=== PATIENT | female | born 1955 | race Caucasian/White ===

== ENCOUNTER → 2017-02-09 | Outpatient (CLI) | payer OTHER | LOC: FIMAGING 06:58 | PROVIDERS: ATTEND Family Medicine | DX: K80.20 Calculus of gallbladder without cholecystitis without obstruction (principal); D18.03 Hemangioma of intra-abdominal structures ==

== ENCOUNTER → 2017-05-09 | Outpatient (CLI) | payer OTHER | LOC: FIMAGING 08:31 | DX: Z12.31 Encounter for screening mammogram for malignant neoplasm of breast (principal) | CPT/HCPCS: G0202 ==

== ENCOUNTER → 2017-08-18 | Outpatient (CLI) | payer OTHER | LOC: EDSTATUS 12:15 → FIMAGING 12:15 | PROVIDERS: ATTEND Family Medicine | DX: R07.89 Other chest pain (principal); M79.9 Soft tissue disorder, unspecified; M75.40 Impingement syndrome of unspecified shoulder ==

== ENCOUNTER → 2017-08-29 | Outpatient (CLI) | payer OTHER | LOC: FIMAGING 13:58 | PROVIDERS: ATTEND Family Medicine | DX: M79.9 Soft tissue disorder, unspecified (principal); R07.89 Other chest pain; M75.40 Impingement syndrome of unspecified shoulder ==

== ENCOUNTER → 2018-04-04 | Outpatient (CLI) | payer OTHER | LOC: FIMAGING 14:44 → EDSTATUS 14:45 | PROVIDERS: ATTEND Family Medicine | DX: D18.03 Hemangioma of intra-abdominal structures (principal); J98.4 Other disorders of lung; M41.9 Scoliosis, unspecified; R53.83 Other fatigue; R35.1 Nocturia ==

== ENCOUNTER → 2018-05-19 | Outpatient (CLI) | payer OTHER | LOC: FIMAGING 14:52 | PROVIDERS: ATTEND Internal Medicine Pulmonary Disease | DX: J43.9 Emphysema, unspecified (principal); R91.1 Solitary pulmonary nodule ==

== ENCOUNTER → 2018-12-11 | Outpatient (CLI) | payer OTHER ==
[~2018-12-11] MED LIST: IOPAMIDOL (ISOVUE 370) 100 ML BTL IV ONE
== END ==
LOC: FIMAGING 13:38
PROVIDERS: ATTEND Internal Medicine Pulmonary Disease
DX: R91.8 Other nonspecific abnormal finding of lung field (principal)
CPT/HCPCS: Q9967

== ENCOUNTER 2019-03-22 20:23 | Observation (INO) | payer OTHER ==
--- NOTE | 2019-03-22 20:41 | EDPHY ---
H & P Time Seen by Provider: 03/22/19 20:41 HPI/ROS: CHIEF COMPLAINT: Abdominal pain HISTORY OF PRESENT ILLNESS: History of known gallstone since 2014 per the patient, ultrasound on 02/09/2017 shows a 15 x 18 x 11 mm gallstone. Started having pain 2 days ago and then much worse today. Right upper quadrant abdomen radiating to the back, worse today after eating chicken soup and a bagel today. Associated with nausea but no vomiting. Severe on arrival. Not associated with fevers or chills or injury or recent trauma. REVIEW OF SYSTEMS: Eye: no change in vision ENT: no sore throat Cardiac: no chest pain or syncope Pulmonary: no cough or SOB Abdomen: HPI Musculoskeletal: no back pain Skin: no rash Neuro: no headache Constitutional: no fever : no urinary symptoms A comprehensive 10 point review of systems is otherwise negative aside from elements mentioned in the history of present illness. PAST MEDICAL HISTORY: Gallstone, varicose vein surgery Social history: No alcohol or tobacco General Appearance: Alert and conversant, cooperative. Eyes: No scleral icterus. ENT, Mouth: Dry mucous membranes. Respiratory: Normal respiratory effort, breath sounds equal, lungs are clear to auscultation. Cardiovascular: Regular rate and rhythm. Gastrointestinal: Right upper quadrant abdominal tenderness but no guarding or rebound. Neurological: Alert, face symmetric, normal motor and sensory in extremities. Skin: Warm and dry, no rashes. Musculoskeletal: No peripheral edema. Psychiatric: Not agitated. Emergency Department course/MDM: Fentanyl 100 and Zofran 4, IV normal saline 1 L, right upper quadrant ultrasound , CBC chemistry lipase and LFT. 2034: mobile gallstone without cholecystitis, liver mass known unchanged, Glenna. 2199: Lipase 700, with typical symptoms will admit for IV fluids for mild pancreatitis. She feels better now. Smoking Status: Never smoked Constitutional: Initial Vital Signs Temperature (C) 37.0 C 03/22/19 20:27 Heart Rate 85 03/22/19 20:27 Respiratory Rate 16 03/22/19 20:27 Blood Pressure 145/105 H 03/22/19 20:27 O2 Sat (%) 97 03/22/19 20:27 O2 Delivery Mode Room Air Allergies/Adverse Reactions: No Known Allergies Allergy (Unverified 03/22/19 20:29) Home Medications: Medication Instructions Recorded NK [No Known Home Meds] 03/22/19 Medical Decision Making - Diagnostics Imaging Results: Imaging Impressions Abdomen Ultrasound 03/22/19 20:53 Impression: 1. Cholelithiasis (solitary and mobile) without secondary evidence of cholecystitis 2. Stable hepatic mass presumably a hemangioma Results discussed with Dr. Neeraj Smith at 9:35 PM Imaging: Discussed imaging studies w/ yard caller Radiologist Consult/Admit Bed Type: [place] [id number] - Data Points Laboratory Results: Laboratory Results 03/22/19 21:05 03/22/19 21:05 03/22/19 03/22/19 21:05 21:05 WBC 10.85 10^3/uL H 10^3/uL (3.80-9.50) RBC 4.78 10^6/uL 10^6/uL (4.18-5.33) Hgb 14.3 g/dL g/dL (12.6-16.3) Hct 41.9 % % (38.0-47.0) MCV 87.7 fL fL (81.5-99.8) MCH 29.9 pg pg (27.9-34.1) MCHC 34.1 g/dL g/dL (32.4-36.7) RDW 13.5 % % (11.5-15.2) Plt Count 230 10^3/uL 10^3/uL (150-400) MPV 11.1 fL fL (8.7-11.7) Neut % (Auto) 78.5 % H % (39.3-74.2) Lymph % (Auto) 13.4 % L % (15.0-45.0) [place] % (Auto) 7.0 % % (4.5-13.0) Eos % (Auto) 0.5 % L % (0.6-7.6) Baso % (Auto) 0.2 % L % (0.3-1.7) Nucleat RBC Rel Count 0.0 % % (0.0-0.2) Absolute Neuts (auto) 8.53 10^3/uL H 10^3/uL (1.70-6.50) Absolute Lymphs (auto) 1.45 10^3/uL 10^3/uL (1.00-3.00) Absolute Monos (auto) 0.76 10^3/uL 10^3/uL (0.30-0.80) Absolute Eos (auto) 0.05 10^3/uL 10^3/uL (0.03-0.40) Absolute Basos (auto) 0.02 10^3/uL 10^3/uL (0.02-0.10) Absolute Nucleated RBC 0.00 10^3/uL 10^3/uL (0-0.01) Immature Gran % 0.4 % % (0.0-1.1) Immature Gran # 0.04 10^3/uL 10^3/uL (0.00-0.10) Sodium 139 mEq/L mEq/L (135-145) Potassium 3.5 mEq/L mEq/L (3.5-5.2) Chloride 104 mEq/L mEq/L (97-110) Carbon Dioxide 26 mEq/l mEq/l (22-31) Anion Gap 9 mEq/L mEq/L (6-14) BUN 13 mg/dL mg/dL (7-23) Creatinine 0.6 mg/dL mg/dL (0.6-1.0) Estimated GFR > 60 Glucose 100 mg/dL mg/dL (70-100) Calcium 8.8 mg/dL mg/dL (8.5-10.4) Total Bilirubin 0.4 mg/dL mg/dL (0.1-1.4) Conjugated Bilirubin 0.3 mg/dL mg/dL (0.0-0.5) Unconjugated Bilirubin 0.1 mg/dL mg/dL (0.0-1.1) AST 21 IU/L IU/L (14-46) ALT 37 IU/L IU/L (9-52) Alkaline Phosphatase 64 IU/L IU/L (38-126) Total Protein 6.5 g/dL g/dL (6.3-8.2) Albumin 4.1 g/dL g/dL (3.5-5.0) Lipase 703 IU/L H IU/L (23-300) Medications Given: Discontinued Medications Fentanyl (Sublimaze) 100 mcg IVP EDNOW ONE Stop: 03/22/19 20:54 Last Admin: 03/22/19 21:06 Dose: 100 mcg Sodium Chloride (Ns) 1,000 mls @ 0 mls/hr IV EDNOW ONE; Wide Open PRN Reason: Protocol Stop: 03/22/19 20:54 Last Admin: 03/22/19 21:05 Dose: 1,000 mls Ondansetron HCl (Zofran) 4 mg IVP EDNOW ONE Stop: 03/22/19 20:54 Last Admin: 03/22/19 21:05 Dose: 4 mg Departure - Departure Disposition: [facility] In[facility] Acute Clinical Impression: Biliary colic Pancreatitis, acute Qualifiers: Pancreatitis type: unspecified pancreatitis type Acute pancreatitis complication: unspecified Qualified Code(s): K85.90 - Acute pancreatitis without necrosis or infection, unspecified Condition: Good Referrals: Scarlett Boo MD [Primary Care Provider] - As per Instructions
[2019-03-22] MEDS ORDERED: NS 1,000 ML IV ONE (20:53)
[2019-03-22] MEDS ORDERED: fentaNYL 100 MCG/2 ML INJ IVP ONE (20:53)
[2019-03-22] MEDS ORDERED: ONDANSETRON 4 MG/2 ML VIAL IVP ONE (20:53)
[2019-03-22 21:22] LABS: PLATELET COUNT 230 10^3/uL (150-400)
[2019-03-22] MEDS ORDERED: ONDANSETRON DISINTEGRATING 4 MG TAB PO PRN (22:18)
[2019-03-22] MEDS ORDERED: ACETAMINOPHEN 325 MG TAB PO PRN (22:18)
[2019-03-22] MEDS ORDERED: PROMETHAZINE HCL 25 MG/ML INJ IVP PRN (22:18)
[2019-03-22] MEDS ORDERED: ONDANSETRON 4 MG/2 ML VIAL IVP PRN (22:18)
[2019-03-22] MEDS: NS 1,000 ML IV SCH (23:24)
[2019-03-22] MEDS: oxyCODONE IR 5 MG TAB PO PRN (23:40)
--- NOTE | 2019-03-23 00:19 | PDGENHP ---
History and Physical - Chief Complaint Abdominal pain - History of Present Illness 63 yo F w/ hx of gallstones presents with abdominal pain. The patient tells me she developed her usual RUQ, post-prandial pain 2 days ago. The pain, however, seemed to persist. She also then developed discomfort in the epi-gastric region as well as nausea and vomiting. She came in to the ED for evaluation and was noted to have a mildly elevated lipase, suggestive of pancreatitis. A RUQ u/s demonstrates only cholelithiasis. During my evaluation she is only in minimal pain. She is being admitted for supportive care for likely gallstone pancreatitis. She tells me a cholecystectomy has been recommended in the past but she chose to postpone this. Case Discussed with Dr. Nassar; records reviewed and summarized above. History Information - Allergies/Home Medication List Allergies/Adverse Reactions: No Known Allergies Allergy (Unverified 03/22/19 20:29) Home Medications: NK [No Known Home Meds] 03/22/19 [Last Taken Unknown] I have personally reviewed and updated: family history, medical history - Past Medical History Additional medical history: Gallstones - Surgical History Additional surgical history: LE venous ablation - Family History Positive for: diabetes type II Additional family history: Gallstones - Social History Smoking Status: Never smoked Review of Systems Review of Systems: ROS: 10pt was reviewed & negative except for what was stated in HPI & below Physical Exam Physical Exam: Temp Pulse Resp BP Pulse Ox 37.0 C 80 16 112/72 90 L 03/22/19 23:19 03/22/19 23:19 03/22/19 23:19 03/22/19 23:19 03/22/19 23:19 Constitutional: appears nourished, uncomfortable Eyes: PERRL, EOMI Ears, Nose, Mouth, Throat: moist mucous membranes, no oral mucosal ulcers Cardiovascular: regular rate and rhythym, no murmur, rub, or gallop Respiratory: no respiratory distress, clear to auscultation Gastrointestinal: normoactive bowel sounds, tenderness (RUQ/epi-gastric), No guarding, No rebound, No distension Skin: warm, normal color Musculoskeletal: full muscle strength, no muscle tenderness Neurologic: AAOx3, CN II-XII Intact Psychiatric: interacting appropriately, not anxious Lab Data & Imaging Review 03/22/19 21:05 03/22/19 21:05 WBC 10.85 10^3/uL (3.80-9.50) H 03/22/19 21:05 RBC 4.78 10^6/uL (4.18-5.33) 03/22/19 21:05 Hgb 14.3 g/dL (12.6-16.3) 03/22/19 21:05 Hct 41.9 % (38.0-47.0) 03/22/19 21:05 MCV 87.7 fL (81.5-99.8) 03/22/19 21:05 MCH 29.9 pg (27.9-34.1) 03/22/19 21:05 MCHC 34.1 g/dL (32.4-36.7) 03/22/19 21:05 RDW 13.5 % (11.5-15.2) 03/22/19 21:05 Plt Count 230 10^3/uL (150-400) 03/22/19 21:05 MPV 11.1 fL (8.7-11.7) 03/22/19 21:05 Neut % (Auto) 78.5 % (39.3-74.2) H 03/22/19 21:05 Lymph % (Auto) 13.4 % (15.0-45.0) L 03/22/19 21:05 [place] % (Auto) 7.0 % (4.5-13.0) 03/22/19 21:05 Eos % (Auto) 0.5 % (0.6-7.6) L 03/22/19 21:05 Baso % (Auto) 0.2 % (0.3-1.7) L 03/22/19 21:05 Nucleat RBC Rel Count 0.0 % (0.0-0.2) 03/22/19 21:05 Absolute Neuts (auto) 8.53 10^3/uL (1.70-6.50) H 03/22/19 21:05 Absolute Lymphs (auto) 1.45 10^3/uL (1.00-3.00) 03/22/19 21:05 Absolute Monos (auto) 0.76 10^3/uL (0.30-0.80) 03/22/19 21:05 Absolute Eos (auto) 0.05 10^3/uL (0.03-0.40) 03/22/19 21:05 Absolute Basos (auto) 0.02 10^3/uL (0.02-0.10) 03/22/19 21:05 Absolute Nucleated RBC 0.00 10^3/uL (0-0.01) 03/22/19 21:05 Immature Gran % 0.4 % (0.0-1.1) 03/22/19 21:05 Immature Gran # 0.04 10^3/uL (0.00-0.10) 03/22/19 21:05 Sodium 139 mEq/L (135-145) 03/22/19 21:05 Potassium 3.5 mEq/L (3.5-5.2) 03/22/19 21:05 Chloride 104 mEq/L (97-110) 03/22/19 21:05 Carbon Dioxide 26 mEq/l (22-31) 03/22/19 21:05 Anion Gap 9 mEq/L (6-14) 03/22/19 21:05 BUN 13 mg/dL (7-23) 03/22/19 21:05 Creatinine 0.6 mg/dL (0.6-1.0) 03/22/19 21:05 Estimated GFR > 60 03/22/19 21:05 Glucose 100 mg/dL (70-100) 03/22/19 21:05 Calcium 8.8 mg/dL (8.5-10.4) 03/22/19 21:05 Total Bilirubin 0.4 mg/dL (0.1-1.4) 03/22/19 21:05 Conjugated Bilirubin 0.3 mg/dL (0.0-0.5) 03/22/19 21:05 Unconjugated Bilirubin 0.1 mg/dL (0.0-1.1) 03/22/19 21:05 AST 21 IU/L (14-46) 03/22/19 21:05 ALT 37 IU/L (9-52) 03/22/19 21:05 Alkaline Phosphatase 64 IU/L (38-126) 03/22/19 21:05 Total Protein 6.5 g/dL (6.3-8.2) 03/22/19 21:05 Albumin 4.1 g/dL (3.5-5.0) 03/22/19 21:05 Lipase 703 IU/L (23-300) H 03/22/19 21:05 Urine Color PALE YELLOW 03/22/19 22:22 Urine Appearance CLEAR 03/22/19 22:22 Urine pH 6.0 (5.0-7.5) 03/22/19 22:22 Ur Specific [place] 1.009 (1.002-1.030) 03/22/19 22:22 Urine Protein NEGATIVE (NEGATIVE) 03/22/19 22:22 Urine Ketones NEGATIVE (NEGATIVE) 03/22/19 22:22 Urine Blood 1+ (NEGATIVE) H 03/22/19 22:22 Urine Nitrate NEGATIVE (NEGATIVE) 03/22/19 22:22 Urine Bilirubin NEGATIVE (NEGATIVE) 03/22/19 22:22 Urine Urobilinogen NEGATIVE EU (0.2-1.0) 03/22/19 22:22 Ur Leukocyte Esterase TRACE (NEGATIVE) H 03/22/19 22:22 Urine RBC 1-3 /hpf (0-3) 03/22/19 22:22 Urine WBC 1-3 /hpf (0-3) 03/22/19 22:22 Ur Epithelial Cells TRACE /lpf (NONE-1+) 03/22/19 22:22 Urine Mucus TRACE /lpf (NONE-1+) 03/22/19 22:22 Urine Glucose NEGATIVE (NEGATIVE) 03/22/19 22:22 Imaging Review: Imaging Impressions Abdomen Ultrasound 03/22/19 20:53 Impression: 1. Cholelithiasis (solitary and mobile) without secondary evidence of cholecystitis 2. Stable hepatic mass presumably a hemangioma Results discussed with Dr. Neeraj Smith at 9:35 PM Assessment & Plan Assessment: 63 yo F w/ hx of cholelithiasis presents with presumed gallstone pancreatitis. Plan: 1. Pancreatitis - Likely due to known cholelithiasis; lipase only 703 on admission. - Admit for observation - NPO, ADAT - mIVF, pain control, anti-emetics PRN 2. Cholelithiasis - Chronic issue for this patient, she has been advised on the need for cholecystectomy in the past but has decided to post-pone. - Consider inpatient surgery consult if patient amenable Diet - NPO, mIVF, ADAT Code - Full Ppx - SCDs Dispo - Admit under observation status
[2019-03-23] MEDS: oxyCODONE IR 5 MG TAB PO PRN ×4 (03:40→20:07)
[2019-03-23 04:36] LABS: PLATELET COUNT 208 10^3/uL (150-400)
[2019-03-23] MEDS: NS 1,000 ML IV SCH (05:52)
--- NOTE | 2019-03-23 13:00 | HOSPPROG ---
Hospitalist Progress Note Assessment/Plan: 63 yo f w gallstone pancreatitis pancreatitis: mild continue NPO cholelithiasis: this is her second episode related to gallstones surgical eval for likely cholecystectomy this admit pain: continue morphine and prn oxycodone proph: LMwh postop if staying dispo: change to inpt for surgery Subjective: case d/w dr fowler. pain improved Objective: Vital Signs Temp Pulse Resp BP Pulse Ox 36.3 C 71 16 118/76 91 L 03/23/19 11:41 03/23/19 11:41 03/23/19 11:41 03/23/19 11:41 03/23/19 11:41 Laboratory Results 03/23/19 04:16 03/23/19 04:16 03/22/19 03/23/19 03/24/19 05:59 05:59 05:59 Intake Total 2000 Output Total 500 300 Balance 1500 -300 - Physical Exam Constitutional: no apparent distress, appears nourished Eyes: PERRL, anicteric sclera Ears, Nose, Mouth, Throat: moist mucous membranes, hearing normal Cardiovascular: regular rate and rhythym, no murmur, rub, or gallop Respiratory: no respiratory distress, no rales or rhonchi Gastrointestinal: normoactive bowel sounds, soft, non-tender abdomen, No ortiz' s sign, No guarding, No rebound Genitourinary: no bladder fullness, No santana in urethra Skin: warm, normal color Musculoskeletal: full muscle strength Neurologic: AAOx3 ICD10 Worksheet Patient Problems: Problems Problem Status Onset Biliary colic Acute Pancreatitis, acute Acute
[2019-03-23] MEDS ORDERED: BUPIVACAINE 0.5% 30 ML SDV ONE (13:21)
[2019-03-23] MEDS ORDERED: ceFAZolin 2 GM/DEXTROSE 100 ML IV ONE (13:34)
[2019-03-23] MEDS ORDERED: LR 1,000 ML IV ONE (13:44)
--- NOTE | 2019-03-23 14:26 | PDANEPAE ---
ANE History of Present Illness cholelithiasis, here for lap dakota ANE Past Medical History - Cardiovascular History Hx Hypertension: No Hx Arrhythmias: No Hx Chest Pain: No Hx Coronary Artery / Peripheral Vascular Disease: No Hx CHF / Valvular Disease: No Hx Palpitations: No - Pulmonary History Hx COPD: No Hx Asthma/Reactive Airway Disease: No Hx Recent Upper Respiratory Infection: No Hx Oxygen in Use at Home: No Hx Sleep Apnea: No Sleep Apnea Screening Result - Last Documented: Negative - Endocrine History Hx Diabetes: No - Chronic Pain History Chronic Pain: No ANE Review of Systems Review of Systems: - Exercise capacity Exercise capacity: >=4 METS ANE Patient History - Allergies Allergies/Adverse Reactions: No Known Allergies Allergy (Verified 03/23/19 08:02) - Home Medications Home Medications: Aspirin [Aspirin 325 mg (*)] 325 mg PO DAILY PRN 03/23/19 [Last Taken Unknown] Calcium Carbonate [Oyster Shell Calcium 500 mg (*)] 500 mg PO DAILY 03/23/19 [ Last Taken Unknown] Cholecalciferol Vit D3 [Vitamin D3 (*)] 1,000 units PO DAILY 03/23/19 [Last Taken Unknown] Multivitamins [Multivitamin (*)] 1 each PO DAILY 03/23/19 [Last Taken Unknown] - NPO status NPO Status: no food or drink >8 hours NPO Since - Liquids (Date): 03/22/19 NPO Since - Liquids (Time): 17:00 NPO Since - Solids (Date): 03/22/19 NPO Since - Solids (Time): 13:30 - Anes Hx Anes Hx: no prior problems - Smoking Hx Smoking Status: Never smoked - Alcohol Use Alcohol Use: None - Family Anes Hx Family Anes Hx: none ANE Labs/Vital Signs - Labs Result Diagrams: 03/23/19 04:16 03/23/19 04:16 - Vital Signs Blood Pressure: 140/77 Heart Rate: 69 Respiratory Rate: 16 O2 Sat (%): 95 Height: 165.1 cm Weight: 71.214 kg ANE Physical Exam - Airway Neck exam: FROM Mallampati Score: Class 3 Mouth exam: poor dentition Mouth image: 1 - missing 2 - missing - Pulmonary Pulmonary: no respiratory distress - Cardiovascular Cardiovascular: regular rate and rhythym - ASA Status ASA Status: I ANE Anesthesia Plan Anesthesia Plan: general endotracheal anesthesia
[2019-03-23] MEDS ORDERED: MIDAZOLAM 2 MG/2 ML VIAL IVP ONE (14:27)
[2019-03-23] MEDS ORDERED: PROPOFOL 200 MG/20 ML VIAL ONE (14:31)
[2019-03-23] MEDS ORDERED: KETOROLAC 30 MG/1 ML SDV ONE (14:31)
[2019-03-23] MEDS ORDERED: LIDOCAINE 2% 100 MG/5 ML SYR ONE (14:31)
[2019-03-23] MEDS ORDERED: MIDAZOLAM 2 MG/2 ML VIAL ONE (14:31)
[2019-03-23] MEDS ORDERED: fentaNYL 100 MCG/2 ML INJ ONE (14:31)
[2019-03-23] MEDS ORDERED: DEXAMETHASONE 4 MG/ML VIAL ONE (14:31)
[2019-03-23] MEDS ORDERED: ROCURONIUM 50 MG/5 ML VIAL ONE (14:31)
[2019-03-23] MEDS ORDERED: ONDANSETRON 4 MG/2 ML VIAL ONE (14:32)
[2019-03-23] MEDS ORDERED: SUGAMMADEX SODIUM 200 MG/2 ML VIAL IVP ONE (15:26)
--- NOTE | 2019-03-23 15:38 | POSTOPPROG ---
Post Op Note Date of Operation: 03/23/19 Surgeon: Marva Moralez Anesthesiologist: shayla Anesthesia: GET(General Endotracheal) Pre-op Diagnosis: gallstone panc Post-op Diagnosis: same Indication: 63 yo with gallstone panc Procedure: lap dakota Inf/Abcess present in the surg proc area at time of surgery?: No EBL: Minimal Specimen(s): gallbladder
[2019-03-23] MEDS ORDERED: fentaNYL 100 MCG/2 ML INJ IVP PRN (15:43)
[2019-03-23] MEDS ORDERED: NALOXONE HCL 0.4 MG/ML INJ IVP PRN (15:43)
[2019-03-23] MEDS ORDERED: ONDANSETRON 4 MG/2 ML VIAL IVP PRN (15:43)
[2019-03-23] MEDS ORDERED: PROMETHAZINE HCL 25 MG/ML INJ IVP PRN (15:43)
--- NOTE | 2019-03-23 15:44 | POSTANESTH ---
Post Anesthetic Evaluation Cardiovascular Status: Normal, Stable, Similar to Pre-Op Cond Respiratory Status: Normal, Stable, Similar to Pre-op Cond. Level of Consciousness/Mental Status: Mildly Sleepy, Arousable Pain Control: Adequate, Prn Tx Ordered Nausea/Vomiting Control: Adequate, Prn Tx Ordered Complications Possibly Related to Anesthesia: None Noted
--- NOTE | 2019-03-23 15:55 | ASMTCMCOM ---
CM Note CM Note Notes: Chart Review for Discharge Planning purposes: Patient is a 63 year old female who presented to [facility] ED with abdominal pain & nausea. Medical history includes known gallstone and has received past recommendation for Cholecystectomy which she has decided to post pone. There are no therapies ordered at this time. CM discussed with RN, patient received recommendation for Cholecystecomy laparoscopy. Daughter Trini listed in chart as person to contact, here with patient. CM to follow. D/C Plan: TBD, likely independent. Date Signed: 03/23/2019 03:55 PM Electronically Signed By:Blanche Mc
--- NOTE | 2019-03-23 16:00 | GOP ---
[f rep st] OPERATIVE REPORT DATE OF OPERATION: 03/22/2019 SURGEON: Marva Moralez MD ANESTHESIA: General. ANESTHESIOLOGIST: Dr. Neptali Miller. PREOPERATIVE DIAGNOSIS: Gallstone pancreatitis. POSTOPERATIVE DIAGNOSIS: Gallstone pancreatitis. PROCEDURE PERFORMED: Laparoscopic cholecystectomy. FINDINGS: No unusual, critical view obtained. SPECIMENS: Gallbladder. ESTIMATED BLOOD LOSS: 10 cc. INDICATIONS: The patient is a 63-year-old with repeated episodes of gallstone pancreatitis. DESCRIPTION OF PROCEDURE: Patient was brought into the operating room, placed supine on the table, and general anesthesia was administered. Her abdomen was prepped and draped in the usual sterile fashion. I infiltrated all sites with 0.5% Marcaine prior to making incisions. I elevated her umbilicus. I inserted the Veress needle. It passed the hanging drop test. Her abdomen insufflated easily to a pressure of 15 mmHg. I placed a 5 mm camera with a trocar at this site. There were no injuries from Veress needle placement. I placed a 10 mm subxiphoid trocar and two 5 mm trocars along the right costal margin. I lifted her gallbladder cephalad and laterally to expose the triangle of [place]. I skeletonized the cystic artery and the cystic duct so that they were the only 2 structures directly entering the gallbladder. They were each singly clipped toward the gallbladder, doubly clipped distally, and transected. The common bile duct was identified and protected from harm. As I was removing the gallbladder from the gallbladder fossa, at the very end, there was a small perforation in the back wall. The gallbladder was removed with minimal spillage of bile. It was placed in an EndoCatch bag and removed via the 10 mm trocar. Copious suction and irrigation were performed. Hemostasis achieved on the liver bed. Area inspected. Clips in satisfactory position. The trocars were removed under direct vision. Abdomen allowed to desufflate. The fascia at the 10 mm trocar site was closed with 0 Vicryl. Skin closed with 4-0 Monocryl. Dermabond applied. She was awakened in the operating room, extubated , transferred to PACU in stable condition. /[id number]/MODL MTDD
[2019-03-24 08:40] VITALS: BP 132/81
--- NOTE | 2019-03-24 08:58 | SOAPPROG ---
SOAP Progress Note Assessment/Plan: Assessment: POD # 1 s/p lap dakota for gallstone pancreatitis Doing well Advance diet Can dc home S: Feeling much improved O: Sitting in bed, pleasant BS present, incisions cdi, soft Plan: 03/24/19 08:57 Objective: Vital Signs Temp Pulse Resp BP Pulse Ox 36.7 C 70 18 132/81 H 93 03/24/19 08:37 03/24/19 08:37 03/24/19 08:37 03/24/19 08:37 03/24/19 08:37 Laboratory Results 03/23/19 04:16 03/24/19 04:24 03/23/19 03/24/19 03/25/19 05:59 05:59 05:59 Intake Total 1999 2149 Output Total 500 2910 Balance 1500 -760 ICD10 Worksheet Patient Problems: Problems Problem Status Onset Biliary colic Acute Pancreatitis, acute Acute
[2019-03-24] MEDS ORDERED: CALCIUM CARBONATE 500 MG TAB PO SCH (09:00)
[2019-03-24] MEDS ORDERED: MULTIVITAMINS 1 EACH TAB PO SCH (09:00)
[2019-03-24] MEDS ORDERED: CHOLECALCIFEROL VIT D3 1,000 UNITS TAB PO SCH (09:00)
--- NOTE | 2019-03-24 09:18 | HOSPPROG ---
Hospitalist Progress Note Assessment/Plan: 63 yo f w gallstone pancreatitis pancreatitis: resolved advance diet slowly cholelithiasis: this is her second episode related to gallstones s/p cholecystectomy pain: continue morphine and prn oxycodone proph: LMwh postop if staying dispo: home today >30 minutes on dc Subjective: s/p lap dakota. feels much better. tolerating po's Objective: Vital Signs Temp Pulse Resp BP Pulse Ox 36.7 C 70 18 132/81 H 93 03/24/19 08:37 03/24/19 08:37 03/24/19 08:37 03/24/19 08:37 03/24/19 08:37 Laboratory Results 03/23/19 04:16 03/24/19 04:24 03/23/19 03/24/19 03/25/19 05:59 05:59 05:59 Intake Total 19990 Output Total 500 2910 Balance 1500 -760 - Physical Exam Constitutional: no apparent distress, appears nourished Eyes: PERRL, anicteric sclera Ears, Nose, Mouth, Throat: moist mucous membranes, hearing normal Cardiovascular: regular rate and rhythym, no murmur, rub, or gallop Respiratory: no respiratory distress, no rales or rhonchi Gastrointestinal: normoactive bowel sounds, No ortiz's sign, No guarding, No rebound Genitourinary: No santana in urethra Skin: warm, normal color Musculoskeletal: full muscle strength Neurologic: AAOx3 ICD10 Worksheet Patient Problems: Problems Problem Status Onset Biliary colic Acute Pancreatitis, acute Acute
--- NOTE | 2019-03-24 09:52 | GDS ---
[f rep st] DISCHARGE SUMMARY DISCHARGE DIAGNOSES: 1. Gallstone pancreatitis. 2. Status post cholecystectomy. HOSPITAL COURSE: Please see admission history and physical by Dr. Brian Feuntes. The patient presented with abdominal pain, elevated lipase. She had a history of previous biliary colic but had declined cholecystectomy. She had serologic evidence of pancreatitis. Ultrasound showed gallstones without acute cholecystitis. She underwent cholecystectomy that was uncomplicated. She feels well on the day of discharge and is discharged home. She was given a limited prescription for pain medica tions. /[id number]/MODL
--- NOTE | 2019-03-24 16:35 | ASDISCHSUM ---
Discharge Information Plan Status:Home with No Needs Medically Cleared to Leave:03/24/2019 Discharge Date:03/24/2019 10:53 AM CM D/C Disposition:Home, Routine, Self-Care ADT D/C Disposition:Home, Routine, Self-Care Projected Discharge Date:03/24/2019 10:53 AM Transportation at D/C:Family Discharge Delay Reason: Follow-Up Date:03/24/2019 10:53 AM Discharge Slot: Final Diagnosis: Placement Information Patient Contact Information Contact Name:LOLITASHIMON Relationship: Address:[address] [place] [address] Work Phone: City:[place] Alternate Phone: [facility]/Zip Code:[place] [address] Email: Financial Information Financial Class:GVISP 1 Primary Plan Desc:[facility] LOC[facility] Primary Plan Number:[id number] Secondary Plan Desc: Secondary Plan Number: Assessment Information LACE LACE Length of stay for Answers: 2 days current admission Acuity / Level of Answers: No Care: Did the patient have an inpatient admission? Comorbidities - select Answers: Other Notes: Gallstones all that apply # of Emergency department Answers: 1-2 visits in the last 6 months Score: 4 Date Signed: 03/24/2019 04:33 PM Electronically Signed By:ISIDRO Cheek [facility] CM Progress Note CM Note CM Note Notes: Chart Review for Discharge Planning purposes: Patient is a 63 year old female who presented to [facility] ED with abdominal pain & nausea. Medical history includes known gallstone and has received past recommendation for Cholecystectomy which she has decided to post pone. There are no therapies ordered at this time. CM discussed with RN, patient received recommendation for Cholecystecomy laparoscopy. Daughter Trini listed in chart as person to contact, here with patient. CM to follow. D/C Plan: TBD, likely independent. Date Signed: 03/23/2019 03:55 PM Electronically Signed By:Blanche Mc Case Management Discharge Plan Note Case Management Discharge Discharge Order Complete? Answers: Yes Patient to Obtain Answers: via Family Medications Transportation Arranged Answers: Family/Friends Discharge Comments Notes: Pt discharged home today with her . She had no CM needs. Date Signed: 03/24/2019 04:34 PM Electronically Signed By:ISIDRO Cheek Intervention Information
== END 2019-03-24 10:53 | disposition home or self-care (01) ==
LOC: F1N 23:07
PROVIDERS: ADMIT Student in an Organized Health Care Education/Training Program; ATTEND Internal Medicine
PROC: 0FT44ZZ Resection of Gallbladder, Percutaneous Endoscopic Approach (ICD-10-PCS; principal; 2019-03-22)
DX: K85.10 Biliary acute pancreatitis without necrosis or infection (principal); R16.0 Hepatomegaly, not elsewhere classified; E86.9 Volume depletion, unspecified
CPT/HCPCS: 47562; 76705; 96361; 96374; 96375; 99285; G0378; J0690; J1100; J1885; J2001; J2250; J2405; J2704; J3010